=== PATIENT | female | born 1980 | race Caucasian/White ===

== ENCOUNTER → 2016-06-18 | Outpatient (CLI) | payer OTHER ==
[2016-06-18 11:28] LABS: CHCM 32.5; HCT 41.5 % (34.0-46.0); HDW 2.77; HGB 13.1 gm/dL (11.4-16.0); MCH 28.3 pg (25.0-35.0); MCHC 31.6 g/dL (31.0-37.0); MCV 89.5 fL (80.0-100.0); Mean Platelet Volume 6.9; RBC 4.64 m/uL (3.80-5.40); RDW 11.8 % (11.5-15.5); WBC 5.8 k/uL (3.8-10.6)
[2016-06-18 12:11] LABS: Anion Gap 10 mmol/L; Blood Urea Nitrogen 11 mg/dL (7-17); Carbon Dioxide 27 mmol/L (22-30); Chloride 105 mmol/L (98-107); Non-African American GFR(MDRD) >60 (>60 ml/min/1.73 sqM); Potassium 4.2 mmol/L (3.5-5.1); Sodium 142 mmol/L (137-145)
== END | disposition home or self-care (01) ==
LOC: LABWHC1 10:47
PROVIDERS: ATTEND Internal Medicine Cardiovascular Disease
DX: R55 Syncope and collapse (principal)
CPT/HCPCS: 36415; 80051; 82565; 84520; 85027

== ENCOUNTER 2016-06-24 15:37 | Inpatient (IN) | payer OTHER ==
[2016-06-24] MEDS ORDERED: SODIUM CHLORIDE 0.9% 1,000 ML IV SCH (16:30)
[2016-06-24] MEDS: IBUPROFEN 400 MG TAB PO PRN (16:45)
[2016-06-24] MEDS: MIDODRINE 5 MG TAB PO SCH ×2 (16:50→17:22)
[2016-06-24] MEDS: ACETAMINOPHEN TAB 325 MG TAB PO PRN ×2 (17:58→23:43)
[2016-06-24] MEDS: CALCIUM CARBONATE 500 MG CHEWABLE PO PRN (18:00)
[2016-06-24] MEDS: FAMOTIDINE 20 MG TAB PO SCH (19:50)
[2016-06-24] MEDS ORDERED: MAG HYDROX/AL HYDROX/SIMETH 30 ML CUP PO PRN (21:40)
[2016-06-24 23:07] VITALS: RESP 18
[2016-06-25] MEDS: IBUPROFEN 400 MG TAB PO PRN ×2 (03:24→11:42)
[2016-06-25 05:06] VITALS: PULSE 64
[2016-06-25 08:28] VITALS: TEMP 98.2
[2016-06-25] MEDS ORDERED: SODIUM CHLORIDE 0.9% 1,000 ML IV ONE (09:14)
[2016-06-25] MEDS: MIDODRINE 5 MG TAB PO SCH (11:03)
[2016-06-25] MEDS: FAMOTIDINE 20 MG TAB PO SCH (11:03)
[2016-06-25] MEDS ORDERED: FLUDROCORTISONE 0.1 MG TAB PO SCH (11:15)
[2016-06-25 11:31] VITALS: BP 111/69
[2016-06-25] MEDS: CALCIUM CARBONATE 500 MG CHEWABLE PO PRN (11:42)
--- NOTE | 2016-06-25 18:42 | HP ---
DATE OF ADMISSION: 06/24/2016 HISTORY AND PHYSICAL EXAMINATION/DISCHARGE SUMMARY: The patient is a 36-year-old female had multiple syncopal episodes and patient was extensive ( ) and the patient will underwent echocardiogram, which is essentially within normal limits. EKG did not show any significant abnormality. Patient is admitted to [facility] transferred from [facility] to [facility] for tilt table testing. Patient underwent tilt table testing which appears to be positive. The patient had a syncopal episode during the past. Patient may have autonomic dysfunction and the patient although needs to be evaluated for hypocortisolism as an outpatient because of which I referred her to endocrinology for cosyntropin stimulation test. The patient was evaluated by cardiology. They are recommending increased fluticasone. Fluticasone dose was increased. They are not recommending any ( ) at this point of time and patient is being discharged today in stable medical condition. Although patient was advised not to go to work for a couple of weeks and after that patient was advised to be careful and patient works inpatient care and patient was asked to be careful whenever she gets up from sitting down ( ) to standing up position, from lying down to sitting position. REVIEW OF SYSTEMS: CONSTITUTIONAL: No fever, no malaise, no fatigue. HEENT: No recent visual problems or hearing problems. Denied any sore throat. CARDIOVASCULAR: No chest pain, orthopnea, PND, no palpitations, no syncope. PULMONARY: No shortness of breath, no cough, no hemoptysis. GASTROINTESTINAL: No diarrhea, no nausea, no vomiting, no abdominal pain. Normoactive bowel sounds. NEUROLOGICAL: No headaches, no weakness, no numbness. HEMATOLOGICAL: Denies any bleeding or petechiae. GENITOURINARY: Denies any burning micturition, frequency, or urgency. MUSCULOSKELETAL/RHEUMATOLOGICAL: Denies any joint pain, swelling, or any muscle pain. ENDOCRINE: Denies any polyuria or polydipsia. The rest of the 14 point review of systems is negative. PAST MEDICAL HISTORY: Significant for gastroesophageal reflux disease, hypothyroidism. The patient's TSH is essentially within normal limits and the ( ) disease. Patient underwent bariatric surgery in the past, section, cholecystectomy, hernia repair and the patient has motion sickness, anxiety, depression. Family history for cancer, coronary artery disease, diabetes mellitus and hypertension. PHYSICAL EXAMINATION: VITAL SIGNS: Temperature 98.2, pulse of 63, respiratory 16. Blood pressure 111/69, saturating at 99% on room air. GENERAL: The patient is alert and oriented x3, not in any acute distress. Well developed, well nourished. HEENT: Pupils are round and equally reacting to light. EOMI. No scleral icterus. No conjunctival pallor. Normocephalic, atraumatic. No pharyngeal erythema. No thyromegaly. CARDIOVASCULAR: S1 and S2 present. No murmurs, rubs, or gallops. PULMONARY: Chest is clear to auscultation, no wheezing or crackles. ABDOMEN: Soft, nontender, nondistended, normoactive bowel sounds. No palpable organomegaly. MUSCULOSKELETAL: No joint swelling or deformity. EXTREMITIES: No cyanosis, clubbing, or pedal edema. NEUROLOGICAL: Gross neurological examination did not reveal any focal deficits. SKIN: No rashes. Discharge medications include: 1. Famotidine. 2. Calcium carbonate. LABORATORY DATA: None available from here although her laboratory is essentially within normal limits. I did order cosyntropin stimulation test at [facility], the results are still not available at this point of time. ASSESSMENT AND PLAN: 1. Syncopal episode, probably due to autonomic dysfunction versus probably with autonomic dysfunction. Management as mentioned above. 2. Gastroesophageal reflux disease. 3. Depression. The patient will be discharged today to follow up with Dr. Pamela Woodard in [address] Oscar Dos Santos on 07/01 at 3:30 and patient will follow with Dr. Lobo ) in one week. Activity as tolerated. Regular diet. This dictation is both H&P and discharge summary.
--- NOTE | 2016-07-01 08:18 | CE ---
DATE OF SERVICE: TILT TABLE TEST Baseline blood pressure 116/66 mmHg. Baseline heart rate 58 beats a minute. The patient was tilted upright on an angle of 70 degrees per protocol. Within 8 minutes, there was a sudden drop in her blood pressure. Prior to this, she felt clammy, warm, nauseous, and says she was going to throw up. The lowest blood pressure recorded at that time was 78/41 mmHg. When she was laid supine, her blood pressure normalized. IMPRESSION: Neurocardiogenic response to upright tilting.
--- NOTE | 2016-07-01 14:01 | CE ---
DATE OF SERVICE: Please see the tilt table test dictated separately. This is the dictation for the 12-lead ECG. The 12-lead ECG shows sinus mechanism. Heart rate is 55 beats a minute. Normal WI interval, narrow QRS, nonspecific ST-T abnormalities in the inferior leads.
== END 2016-06-25 12:45 | disposition home or self-care (01) | DRG 312 ==
LOC: CATHCVL 15:37 → INTOOBSV 15:38 → OBSVTOIN 15:38 → 6SEL 15:38
PROVIDERS: ADMIT Internal Medicine; ATTEND Internal Medicine
PROC: 4A03XB1 Measurement of Arterial Pressure, Peripheral, External Approach (ICD-10-PCS; 2016-06-25)
PROC: 4A02XFZ Measurement of Cardiac Rhythm, External Approach (ICD-10-PCS; principal; 2016-06-25 09:00)
DX: R55 Syncope and collapse (principal); F32.9 Major depressive disorder, single episode, unspecified; R94.39 Abnormal result of other cardiovascular function study; K21.9 Gastro-esophageal reflux disease without esophagitis; F41.9 Anxiety disorder, unspecified; E03.9 Hypothyroidism, unspecified; Z82.49 Family history of ischemic heart disease and other diseases of the circulatory system; Z83.3 Family history of diabetes mellitus; Z79.899 Other long term (current) drug therapy; Z88.1 Allergy status to other antibiotic agents; Z91.040 Latex allergy status; Z88.0 Allergy status to penicillin; Z91.048 Other nonmedicinal substance allergy status; Z98.84 Bariatric surgery status; Z90.49 Acquired absence of other specified parts of digestive tract; Z80.9 Family history of malignant neoplasm, unspecified
CPT/HCPCS: 93660

== ENCOUNTER → 2016-07-22 | Outpatient (CLI) | payer OTHER ==
--- NOTE | 2016-07-22 12:38 | MR ---
MR brain with and without contrast HISTORY: Dizziness Multiplanar multisequence and postcontrast images through the brain following 20 cc MultiHance IV. Ex am correlated to previous MRI report dated 17 January 2016. There is no restricted diffusion. No hemorrhage or hydrocephalus. 3 hyperintensities are present with in the deep white matter on inversion recovery and T2-weighted sequences which may be an interval fin ding. There are normal appearing orbits. The corpus callosum, cerebellopontine angles, cervical medul darin junction are unremarkable. Partially empty sella is noted. Wispy enhancement in the right fronta l lobe is compatible with small venous angioma. IMPRESSION: Nonspecific foci of white matter demyelination as described, with patient's prior exam be comes available a comparison and an addended report can be performed. No abnormality evident to accou nt for patient's symptoms.
== END ==
LOC: RADMRIMAIN 11:35
PROVIDERS: ATTEND Psychiatry & Neurology Pain Medicine
DX: G37.9 Demyelinating disease of central nervous system, unspecified (principal); R42 Dizziness and giddiness; Z88.0 Allergy status to penicillin; Z88.1 Allergy status to other antibiotic agents; Z91.040 Latex allergy status
CPT/HCPCS: 70553; A9577

== ENCOUNTER → 2016-08-19 | Outpatient (CLI) | payer OTHER ==
--- NOTE | 2016-08-19 12:12 | XR ---
EXAM TYPE: LUMBAR SPINE X RAY SERIES COMPARISON: NONE HISTORY: Low back pain TECHNIQUE: 5 views are submitted. Including flexion-extension lateral views. FINDINGS: Alignment is anatomic. The pedicles are intact. The transverse processes are intact. There is no s pondylolysis or spondylolisthesis. Surgical clips in the right upper quadrant are noted. There is moderate degenerative disc disease involving the lower thoracic spine. Mild degenerative dis c disease at all levels. Alignment appears stable in flexion and extension views. IMPRESSION: 1. Multilevel degenerative disc disease.
== END | disposition home or self-care (01) ==
LOC: RADXRMAIN 10:25
PROVIDERS: ATTEND Psychiatry & Neurology Neurology
DX: M51.36 Other intervertebral disc degeneration, lumbar region (principal)
CPT/HCPCS: 72114

== ENCOUNTER → 2016-09-01 | Outpatient (CLI) | payer OTHER ==
--- NOTE | 2016-09-01 08:37 | MR ---
EXAMINATION TYPE: MR lumbar spine wo con DATE OF EXAM: 09/01/2016 8:17 AM COMPARISON: NONE HISTORY: Lumbago TECHNIQUE: Multiplanar, multisequence images of the lumbar spine were acquired. L1-L2: Normal disc appearance without desiccation. No herniation, protrusion or disc bulging. No ca nal stenosis is present. Foramina are patent bilaterally. L2-L3: There is mild disc desiccation. Mild right paracentral disc bulge without herniation or protru chepe. Minimal effacement ventral thecal sac is noted. No central stenosis identified. Foramina are pa tent. L3-L4: There is mild disc desiccation identified. There is an extruded disc herniation paracentrally and towards the left with disc material extending posterior to the L3 vertebral segment. There is eff acement of the ventral thecal sac and left lateral recess stenosis. No central stenosis at this time. Mild left foraminal encroachment identified. L4-L5: Moderate disc desiccation is identified. Mild posterior central disc herniation effaces the ve ntral thecal sac. No evidence for central stenosis or lateral recess stenosis. Mild bilateral foramin al encroachment is identified. Degenerative endplate marrow changes seen. L5-S1: Normal disc appearance without desiccation. No herniation, protrusion or disc bulging. No ca nal stenosis is present. Foramina are patent bilaterally. Lumbar segments are intact. No paraspinal masses are identified. Conus medullaris has a normal appe arance. IMPRESSION: 1. Extruded disc herniation at L3-4 as discussed above. 2. Mild posterocentral disc herniation at L4-5. See above.
== END | disposition home or self-care (01) ==
LOC: RADMRIMAIN 07:43
PROVIDERS: ATTEND Psychiatry & Neurology Pain Medicine
DX: M51.26 Other intervertebral disc displacement, lumbar region (principal)
CPT/HCPCS: 72148

== ENCOUNTER 2016-09-07 19:08 | Observation (INO) | payer OTHER ==
[2016-09-07] MEDS ORDERED: ASPIRIN 81 MG CHEW PO STA (21:05)
[2016-09-07] MEDS ORDERED: NITROGLYCERIN SL TABS 0.4 MG TAB SUBLINGUAL STA (21:05)
[2016-09-07] MEDS ORDERED: SODIUM CHLORIDE 0.9% 1,000 ML IV STA (21:05)
--- NOTE | 2016-09-07 21:17 | ED ---
General Adult HPI - General Chief complaint: Chest Pain Stated complaint: chest pain Time Seen by Provider: 09/07/16 20:44 Source: patient, family, RN notes reviewed, old records reviewed Mode of arrival: ambulatory Limitations: no limitations - History of Present Illness Initial comments: Chief complaint and history of present illness a 36-year-old female who was at approximately 3 PM today started having chest pain that went down her left arm. Patient reports she just didn't feel well no nausea no vomiting no sweats. The pain is reproducible by pushing hard on her own chest. It goes across the chest into the upper left arm. Initial EKG was done shows a patient arrived emergency room and showed sinus bradycardia but no acute ST elevation no ectopy no ischemic changes. - Related Data Home Medications Medication Instructions Recorded Confirmed Escitalopram [Lexapro] 5 mg PO HS 09/07/16 09/07/16 Famotidine [Pepcid] 40 mg PO HS 09/07/16 09/07/16 Meloxicam [Mobic] 15 mg PO HS 09/07/16 09/07/16 Midodrine [ProAmatine] 5 mg PO BID 09/07/16 09/07/16 Norgestimate-Ethinyl Estradiol 1 tab PO HS 09/07/16 09/07/16 [Sprintec 28 Day Tablet] Omeprazole [PriLOSEC] 20 mg PO DAILY 09/07/16 09/07/16 Allergies Allergy/AdvReac Type Severity Reaction Status Date / Time amoxicillin Allergy Rash/Hives Verified 09/07/16 21:17 erythromycin base Allergy Rash/Hives Verified 09/07/16 21:17 Latex, Natural Rubber Allergy Rash/Hives Verified 09/07/16 21:17 Review of Systems ROS Statement: Those systems with pertinent positive or pertinent negative responses have been documented in the HPI. The patient denies any headache or visual acuity changes she has anterior chest wall pain that goes to the left arm with palpation of her chest wall. The strep started several hours ago no associated sweats nausea or vomiting. No neuro deficits. All systems were reviewed. Past medical problems significant for being diagnosed with MS this last month. Also has GERD, pneumonia, asthma patient has recent and frequent syncopal episodes being treated with medication help her blood pressure get up to a normal range. Her surgeries include bariatric surgery section cholecystectomy hernia repair. She had lap band surgery in 2014. Patient has ALLERGIES to amoxicillin, erythromycin base latex natural rubber. The patient does not smoke does not drink. Family history significant for mother had heart disease and leukemia. Father had renal failure. Brothers and sisters both had heart disease. ROS Other: All systems not noted in ROS Statement are negative. Past Medical History Past Medical History: GERD/Reflux, Pneumonia, Thyroid Disorder Additional Past Medical History / Comment(s): hypothryroidism, polycystic ovarian syndrome.BRONCHITIS, SPARINED ANKLES IN PAST,ARTHRITIS IN ANKLES. AGE 9 BROKE RT ARM,AGE 12 BROKE RT COLLARBONE. HAD CHICKEN POX 8TH GRADE AND GOT BELLS PALSY-STATED HAS HAD BELLS PALSY 4 TIME SINCE AFFECTED RT SIDE OF FACE AT THE TIME."had pne vaccine less than 5 years ago but not sure of date. office closed unable to verify date at time of this admit.MS History of Any Multi-Drug Resistant Organisms: None Reported Past Surgical History: Bariatric Surgery, Section, Cholecystectomy, Hernia Repair Additional Past Surgical History / Comment(s): LAP BAND SINCE REMOVED. Lap sleeve gastrectomy repair hiatal hernia, had to be out to have rt arm reset. mar 2016 had (baby girl). Past Anesthesia/Blood Transfusion Reactions: Motion Sickness Additional Past Anesthesia/Blood Transfusion Reaction / Comment(s): clausterphobia Past Psychological History: Anxiety, Depression Smoking Status: Former smoker Past Alcohol Use History: None Reported Additional Past Alcohol Use History / Comment(s): Pt started smoking in 1993 HERE AND THERE BUT AT AGE 17 [employer]UDENT [employer] 1/2 PPD. QUIT SEPTEMBER 2015 Past Drug Use History: None Reported - Past Family History Mother Family Medical History: Cancer, Coronary Artery Disease (CAD), Diabetes Mellitus , Hypertension Additional Family Medical History / Comment(s): several open herat surguries, tavr procedure, o2 dependant,leukemia-in remission . Father Family Medical History: Blood Disorder, Renal Disease Additional Family Medical History / Comment(s): clotting disorder?, poor circulation, from kidney failure. General Exam - General Exam Comments Initial Comments: General: The patient is awake and alert, in no distress, and does not appear acutely ill. Complains chest pain that started around 3 PM. EKG was normal upon arrival to emergency room. The pain is reproducible with palpation of her own chest by the patient. Vital signs show temperature 97.9 pulse 61 respiratory rate 20 pulse ox 99% room air blood pressure 131/73. Eye: Pupils are equal, round and reactive to light, extra-ocular movements are intact ; there is normal conjunctiva bilaterally. No signs of icterus. Ears, nose, mouth and throat: There are moist mucous membranes and no oral lesions. Neck: The neck is supple, there is no tenderness or JVD. Cardiovascular: There is a regular rate and rhythm. No murmur, rub or gallop is appreciated. Repeat his . Chest wall with palpation over the chest that goes into the left upper arm. Increase with deep breathing or coughing. Respiratory: Lungs are clear to auscultation, respirations are non-labored, breath sounds are equal. No wheezes, stridor, rales, or rhonchi. Gastrointestinal: Soft, non-distended, non-tender abdomen without masses or organomegaly noted. There is no rebound or guarding present. No CVA tenderness. Bowel sounds are unremarkable. Back: There is no tenderness to palpation in the midline. There is no obvious deformity. No rashes noted. Musculoskeletal: Normal ROM, no tenderness, There is no pedal edema. There is no calf tenderness or swelling. Sensation intact. Pulses equal bilaterally 2+. Neurological: CN II-XII intact, There are no obvious motor or sensory deficits. Coordination appears grossly intact. Speech is normal. No neuro deficits appreciated. Skin: Skin is warm and dry and no rashes or lesions are noted. No rashes. Limitations: no limitations Course Vital Signs 09/07/16 09/07/16 09/07/16 19:19 20:21 22:13 Temperature 97.9 F 98.0 F Pulse Rate 61 58 L Respiratory 20 16 16 Rate Blood Pressure 131/73 138/72 O2 Sat by Pulse 99 98 Oximetry 09/07/16 22:34 Temperature Pulse Rate Respiratory Rate Blood Pressure 133/72 O2 Sat by Pulse Oximetry EKG Findings - EKG Comments: EKG Findings:: EKG was done and reviewed at 1923 showing sinus bradycardia rate 54. No acute ST elevation no ectopy no ischemic changes. VA interval is 166 QRS 90 QT [address] Corea Medical Decision Making - Medical Decision Making Medical decision making; patient's white count 6.8 hemoglobin 11.9 hematocrit of 37. INR 1.0 the d-dimer 0.54. Potassium is 4.0 with a BUN 16 creatinine 0.55 the GFR greater than 60. Troponin less than 0.012. Chest x-ray was done and reviewed by radiologist his impression is there is no heart failure nor confluent pneumonic infiltrate. Heart is top normal in size. There are no hilar masses. Bony thorax is intact. Impression borderline cardiomegaly. No acute lung disease. As read by Dr. Willis I discussed the findings with the patient and at bedside. She does have a very strong history of siblings dying of heart attacks in the late 30s and early 40s. Mother had heart disease. The patient will be heparinized and admitted for observation with cardiology consultation and repeat cardiac labs. - Lab Data Result diagrams: 09/07/16 20:45 09/07/16 20:45 Lab Results 09/07/16 09/07/16 09/07/16 Range/Units 20:45 20:45 20:45 WBC 6.8 (3.8-10.6) k/uL RBC 4.25 (3.80-5.40) m/uL Hgb 11.9 (11.4-16.0) gm/dL Hct 37.3 (34.0-46.0) % MCV 87.8 (80.0-100.0) fL MCH 28.0 (25.0-35.0) pg MCHC 31.9 (31.0-37.0) g/dL RDW 13.6 (11.5-15.5) % Plt Count 250 (150-450) k/uL Neutrophils % 58 % Lymphocytes % 32 % Monocytes % 5 % Eosinophils % 3 % Basophils % 1 % Neutrophils # 3.9 (1.3-7.7) k/uL Lymphocytes # 2.1 (1.0-4.8) k/uL Monocytes # 0.3 (0-1.0) k/uL Eosinophils # 0.2 (0-0.7) k/uL Basophils # 0.0 (0-0.2) k/uL PT (9.0-12.0) sec INR (<1.1) APTT (22.0-30.0) sec D-Dimer (<0.60) mg/L FEU Sodium 142 (137-145) mmol/L Potassium 4.0 (3.5-5.1) mmol/L Chloride 110 H (98-107) mmol/L Carbon Dioxide 24 (22-30) mmol/L Anion Gap 8 mmol/L BUN 16 (7-17) mg/dL Creatinine 0.55 (0.52-1.04) mg/dL Est GFR (MDRD) Af Amer >60 (>60 ml/min/1.73 sqM) Est GFR (MDRD) Non-Af >60 (>60 ml/min/1.73 sqM) Glucose 76 (74-99) mg/dL Calcium 8.6 (8.4-10.2) mg/dL Magnesium 2.0 (1.6-2.3) mg/dL Total Bilirubin 0.4 (0.2-1.3) mg/dL AST 19 (14-36) U/L ALT 24 (9-52) U/L Alkaline Phosphatase 51 (38-126) U/L Total Creatine Kinase 124 (30-135) U/L CK-MB (CK-2) 0.5 (0.0-2.4) ng/mL CK-MB (CK-2) Rel Index 0.4 Troponin I <0.012 (0.000-0.034) ng/mL Total Protein 7.1 (6.3-8.2) g/dL Albumin 3.6 (3.5-5.0) g/dL 09/07/16 Range/Units 20:45 WBC (3.8-10.6) k/uL RBC (3.80-5.40) m/uL Hgb (11.4-16.0) gm/dL Hct (34.0-46.0) % MCV (80.0-100.0) fL MCH (25.0-35.0) pg MCHC (31.0-37.0) g/dL RDW (11.5-15.5) % Plt Count (150-450) k/uL Neutrophils % % Lymphocytes % % Monocytes % % Eosinophils % % Basophils % % Neutrophils # (1.3-7.7) k/uL Lymphocytes # (1.0-4.8) k/uL Monocytes # (0-1.0) k/uL Eosinophils # (0-0.7) k/uL Basophils # (0-0.2) k/uL PT 10.0 (9.0-12.0) sec INR 1.0 (<1.1) APTT 19.3 L (22.0-30.0) sec D-Dimer 0.54 (<0.60) mg/L FEU Sodium (137-145) mmol/L Potassium (3.5-5.1) mmol/L Chloride (98-107) mmol/L Carbon Dioxide (22-30) mmol/L Anion Gap mmol/L BUN (7-17) mg/dL Creatinine (0.52-1.04) mg/dL Est GFR (MDRD) Af Amer (>60 ml/min/1.73 sqM) Est GFR (MDRD) Non-Af (>60 ml/min/1.73 sqM) Glucose (74-99) mg/dL Calcium (8.4-10.2) mg/dL Magnesium (1.6-2.3) mg/dL Total Bilirubin (0.2-1.3) mg/dL AST (14-36) U/L ALT (9-52) U/L Alkaline Phosphatase (38-126) U/L Total Creatine Kinase (30-135) U/L CK-MB (CK-2) (0.0-2.4) ng/mL CK-MB (CK-2) Rel Index Troponin I (0.000-0.034) ng/mL Total Protein (6.3-8.2) g/dL Albumin (3.5-5.0) g/dL Disposition Clinical Impression: Cardiomegaly, Unstable angina Disposition: [facility] Condition: Stable
[2016-09-07 22:21] LABS: Basophils % (A) 1 %; CH 27.8; CHCM 31.8; Eosinophils # (A) 0.2 k/uL (0-0.7); Eosinophils % (A) 3 %; HCT 37.3 % (34.0-46.0); HDW 2.58; HGB 11.9 gm/dL (11.4-16.0); Luc # (Auto) 0.17; Luc % (Auto) 3; Lymphocytes # (A) 2.1 k/uL (1.0-4.8); Lymphocytes % (A) 32 %; MCHC 31.9 g/dL (31.0-37.0); MCV 87.8 fL (80.0-100.0); Mean Platelet Volume 7.7; Monocytes # (A) 0.3 k/uL (0-1.0); Monocytes % (A) 5 %; Neutrophils # (A) 3.9 k/uL (1.3-7.7); Neutrophils % (A) 58 %; RBC 4.25 m/uL (3.80-5.40); RDW 13.6 % (11.5-15.5); WBC 6.8 k/uL (3.8-10.6); WBC (Perox) 7.11
[2016-09-07 22:31] LABS: ALT 24 U/L (9-52); AST 19 U/L (14-36); Alkaline Phosphatase 51 U/L (38-126); Anion Gap 8 mmol/L; Blood Urea Nitrogen 16 mg/dL (7-17); Calcium 8.6 mg/dL (8.4-10.2); Carbon Dioxide 24 mmol/L (22-30); Chloride 110 mmol/L (98-107); Glucose 76 mg/dL (74-99); Non-African American GFR(MDRD) >60 (>60 ml/min/1.73 sqM); Sodium 142 mmol/L (137-145); Total Bilirubin 0.4 mg/dL (0.2-1.3); Total Protein 7.1 g/dL (6.3-8.2)
[2016-09-07 22:46] LABS: Partial Thromboplastin Time 19.3 sec (22.0-30.0)
[2016-09-07 22:49] LABS: Creatine Kinase 124 U/L (30-135)
[2016-09-07 23:01] LABS: Creatine Kinase MB 0.5 ng/mL (0.0-2.4); Troponin I <0.012 ng/mL (0.000-0.034)
--- NOTE | 2016-09-07 23:17 | XR ---
EXAMINATION TYPE: XR chest 2V DATE OF EXAM: 09/07/2016 10:51 PM COMPARISON: NONE HISTORY: Chest pain TECHNIQUE: Frontal and lateral views of the chest are obtained. FINDINGS: There is no heart failure nor confluent pneumonic infiltrate. Heart is top normal in size. There are no hilar masses. Bony thorax is intact. IMPRESSION: Borderline cardiomegaly. No acute lung disease.
[2016-09-08] MEDS ORDERED: HEPARIN SODIUM,PORCINE 5,000 UNIT/ML 1 ML VIAL IV ONE (00:23)
[2016-09-08] MEDS ORDERED: NALOXONE 0.4 MG/ML 1 ML VIAL IV PRN (00:25)
[2016-09-08] MEDS ORDERED: IBUPROFEN 400 MG TAB PO PRN (00:25)
[2016-09-08] MEDS ORDERED: HEPARIN SODIUM,PORCINE/D5W PMX 25,000 UNIT in DEXTROSE/WATER 1 500ML.BAG IV SCH (00:30)
[2016-09-08] MEDS ORDERED: SODIUM CHLORIDE 0.9% 1,000 ML IV SCH (00:30)
[2016-09-08] MEDS ORDERED: NITROGLYCERIN SL TABS 0.4 MG TAB SUBLINGUAL PRN (02:06)
[2016-09-08] MEDS: MORPHINE SULFATE 2 MG/ML SYRINGE IVP PRN ×3 (02:12→13:59)
[2016-09-08 08:18] LABS: Creatine Kinase 98 U/L (30-135)
[2016-09-08 08:30] LABS: Creatine Kinase MB 0.4 ng/mL (0.0-2.4); Troponin I <0.012 ng/mL (0.000-0.034)
[2016-09-08] MEDS ORDERED: DOBUTamine DRIP for NUC MED 500 MG in DEXTROSE/WATER 1 250ML.BAG IV ONE (08:46)
--- NOTE | 2016-09-08 08:51 | P.CRDCN ---
History of Present Illness Consult date: 09/08/16 History of present illness: This is a 36-year-old female with history of orthostatic hypotension and recurrent syncopal episodes being followed by Dr. Dos Santos. Apparently she had a workup recently including carotid duplex, echo and event monitor. Patient was put on midodrine and it appears that patient has been feeling better, though she still passes out on occasion. Yesterday patient did not feel well and actually had one syncopal episodes when she was sitting. Apparently she felt dizzy and she sat down before passing out. There was no fall. Subsequent to that patient did not feel well but went to work. Around 3:00 yesterday afternoon patient started having some chest discomfort mostly located on the left side of the chest near the axillary area with some radiation to the left arm. Patient claimed this the first time she had this kind of pain. Because of the pain patient came to the emergency room. EKGs did not reveal any acute changes. Patient was treated with sublingual nitroglycerin with apparent improvement. Patient had pain again last night requiring pain medication. Her cardiac enzymes are negative. Pain does increase on deep breathing. There is no local tenderness. Her chest pains appear to be atypical. Patient is being scheduled for dobutamine echocardiogram. If the stress test is negative, patient could be discharged home. We'll also check her blood pressures for any postural changes. Review of Systems As per the chart Past Medical History Past Medical History: GERD/Reflux, Pneumonia, Thyroid Disorder Additional Past Medical History / Comment(s): hypothryroidism, polycystic ovarian syndrome.BRONCHITIS, SPARINED ANKLES IN PAST,ARTHRITIS IN ANKLES. AGE 9 BROKE RT ARM,AGE 12 BROKE RT COLLARBONE. HAD CHICKEN POX 8TH GRADE AND GOT BELLS PALSY-STATED HAS HAD BELLS PALSY 5 TIME SINCE AFFECTED RT SIDE OF FACE AT THE TIME. MS History of Any Multi-Drug Resistant Organisms: None Reported Past Surgical History: Bariatric Surgery, Section, Cholecystectomy, Hernia Repair Additional Past Surgical History / Comment(s): LAP BAND SINCE REMOVED. Lap sleeve gastrectomy repair hiatal hernia, had to be out to have rt arm reset. mar 2016 had (baby girl). Past Anesthesia/Blood Transfusion Reactions: Motion Sickness Additional Past Anesthesia/Blood Transfusion Reaction / Comment(s): clausterphobia Past Psychological History: Anxiety, Depression Smoking Status: Former smoker Past Alcohol Use History: None Reported Additional Past Alcohol Use History / Comment(s): Pt started smoking in 1993 HERE AND THERE BUT AT AGE 17 [employer] 1/2 PPD. QUIT SEPTEMBER 2015 Past Drug Use History: None Reported - Past Family History Mother Family Medical History: Cancer, Coronary Artery Disease (CAD), Diabetes Mellitus , Hypertension Additional Family Medical History / Comment(s): several open herat surguries, tavr procedure, o2 dependant,leukemia-in remission . Father Family Medical History: Blood Disorder, Renal Disease Additional Family Medical History / Comment(s): clotting disorder?, poor circulation, from kidney failure. Medications and Allergies Home Medications Medication Instructions Recorded Confirmed Type Escitalopram [Lexapro] 5 mg PO HS 09/07/16 09/08/16 History Famotidine [Pepcid] 40 mg PO HS 09/07/16 09/08/16 History Meloxicam [Mobic] 15 mg PO HS 09/07/16 09/08/16 History Midodrine [ProAmatine] 5 mg PO BID 09/07/16 09/08/16 History Norgestimate-Ethinyl Estradiol 1 tab PO HS 09/07/16 09/08/16 History [Sprintec 28 Day Tablet] Omeprazole [PriLOSEC] 20 mg PO DAILY 09/07/16 09/08/16 History Allergies Allergy/AdvReac Type Severity Reaction Status Date / Time amoxicillin Allergy Rash/Hives Verified 09/08/16 01:40 erythromycin base Allergy Rash/Hives Verified 09/08/16 01:40 Latex, Natural Rubber Allergy Rash/Hives Verified 09/08/16 01:40 Physical Exam Vitals: Vital Signs Temp Pulse Pulse Resp BP BP Pulse Ox 09/08/16 07:37 97.6 F 51 L 18 91/54 96 09/08/16 04:00 98.0 F 55 L 16 112/61 100 09/08/16 02:18 16 09/08/16 01:29 98.1 F 54 L 16 125/72 97 09/08/16 00:52 54 L 16 119/71 100 Intake and Output 09/07/16 09/08/16 09/08/16 22:59 06:59 14:59 Other: # Voids 1 GENERAL EXAM: Patient is alert and oriented and doesn't appear to be in any acute distress HEENT: Normocephalic. Normal reaction of pupils, equal size, normal range of extraocular motion. No erythema or exudates in the throat. NECK: No masses, no nuchal rigidity. CHEST: No chest wall deformity. LUNGS: Equal air entry with no crackles or wheeze. HEART: S1 and S2 normal with no audible mumurs or gallops. Regular rhythm, femorals equal on both sides.. ABDOMEN: No hepatosplenomegaly, normal bowel sounds, no guarding or rigidity. SKIN: No rashes CENTRAL NERVOUS SYSTEM: No focal deficits. EXTREMITIES: No cyanosis, clubbing or edema. Results 09/07/16 20:45 09/07/16 20:45 Cardiac Enzymes 09/08/16 Range/Units 06:59 CK-MB (CK-2) 0.4 (0.0-2.4) ng/mL Troponin I <0.012 (0.000-0.034) ng/mL Coagulation 09/08/16 Range/Units 06:59 APTT 30.1 H (22.0-30.0) sec Current Medications Generic Name Dose Route Start Last Admin Trade Name Freq PRN Reason Stop Dose Admin Escitalopram Oxalate 5 mg 09/08/16 21:00 Lexapro PO HS SHARON Famotidine 20 mg 09/08/16 09:00 Pepcid PO BID SHARON Sodium Chloride 1,000 mls @ 75 mls/hr 09/07/16 21:05 09/07/16 22:35 Saline 0.9% IV 09/08/16 10:24 75 mls/hr .[id number] STA Administration Heparin Sodium/Dextrose 25,000 500 mls @ 20.03 mls/hr 09/08/16 00:30 00:48 unit/ IV Solution IV 9.18 units/kg/hr .Q24H SHARON 20 mls/hr Protocol Administration 9.2 UNITS/KG/HR Sodium Chloride 1,000 mls @ 80 mls/hr 09/08/16 00:30 09/08/16 00:51 Saline 0.9% IV 80 mls/hr .[id number] SAHRON Administration Dobutamine HCl/Dextrose 500 mg 250 mls @ 32.65 mls/hr 09/08/16 08:46 / IV Solution IV 09/08/16 08:47 .[id number] ONE Protocol 10 MCG/KG/MIN Ibuprofen 400 mg 09/08/16 00:25 09/08/16 01:47 Motrin PO 400 mg Q6HR PRN Administration Mild Pain or Fever > 100.5 Midodrine 5 mg 09/08/16 09:00 Proamatine PO BID SHARON Morphine Sulfate 2 mg 09/08/16 02:05 09/08/16 05:40 Morphine Sulfate (Inj) IVP 2 mg Q4H PRN Administration Pain/Discomfort Naloxone HCl 0.2 mg 09/08/16 00:25 Narcan IV Q2M PRN Opioid Reversal Nitroglycerin 0.4 mg 09/08/16 02:06 Nitrostat SUBLINGUAL Q5M PRN Chest Pain Intake and Output 09/07/16 09/08/16 09/08/16 22:59 06:59 14:59 Other: # Voids 1 EKG Interpretations (text) Sinus rhythm and sinus bradycardia Assessment and Plan (1) Chest pain Status: Acute (2) Orthostatic hypotension Status: Acute (3) Syncope Status: Acute (4) Syncopal episodes Status: Acute Plan: Patient chest pain appeared to be typical. Her cardiac enzymes are negative and EKGs did not reveal any acute changes. Patient is being scheduled for a dobutamine echocardiogram. If the echocardiogram is negative for ischemia, patient could be discharged home. We'll also check her blood pressure postural changes. Patient is encouraged to increase her salt and fluid intake
[2016-09-08] MEDS ORDERED: MIDODRINE 5 MG TAB PO SCH (09:00)
[2016-09-08] MEDS ORDERED: FAMOTIDINE 20 MG TAB PO SCH (09:00)
[2016-09-08] MEDS ORDERED: METOPROLOL TARTRATE 5 MG/5 ML VIAL IVP ONE (10:26)
[2016-09-08] MEDS ORDERED: ATROPINE SULFATE 0.1 MG/ML 10ML SYRINGE ONE (10:26)
[2016-09-08 11:46] VITALS: BP 115/65; PULSE 65; RESP 16; TEMP 97.8
--- NOTE | 2016-09-08 12:17 | ECHOS ---
DATE OF SERVICE: 09/08/2016 AGE: 36Y SEX: F HT: 67" WT: 240 lbs. Protocol Colby: Others: Dobutamine Stress Echo Stage: 4 Dur. of Exercise: 11:00 *Heart Rate Blood Pressure *Rest: 50 Rest: 112/77 * *Max. Achieved: 157 Maximum BP: 153/75 85% PMHR: 156 100% PMHR: 184 *METS: - INDICATIONS: Chest pain. MEDICATIONS: - CLINICAL INFORMATION: Shortness of breath, chest pain in family history, history of smoking 1/2 pack of cigarettes a day, quit smoking 10 years ago. Resting ECG shows sinus bradycardia, rate of 50 beats per minute, CO interval of 0.16, QRS of 0.08, normal ST-T waves. Utilizing 800 Dobutamine protocol, ( ) was increased up to 40 mcg without reaching the target heart rate. At that point, patient has received 0.5 mg of atropine IV push which increased the heart rate to 157 beats per minute, which is approximately 85% predicted maximum heart rate without any chest pain or pressure or ST segment deviations or cardiac arrhythmias. Patient did not report any symptoms throughout the study. Baseline images shows normal thickening and contractibility. Postexercise images shows improved contractility and thickening in all segments, consistent with normal dobutamine stress echocardiogram. IMPRESSION: 1. Normal dobutamine stress echocardiogram. 2. Patient did not have any ST segment deviations or cardiac arrhythmias throughout the study.
[2016-09-08 14:50] LABS: Creatine Kinase MB 0.5 ng/mL (0.0-2.4); Troponin I 0.015 ng/mL (0.000-0.034)
--- NOTE | 2016-09-08 20:12 | HP ---
DATE OF ADMISSION: 09/08/2016 PRESENTING COMPLAINT: Not feeling well. History of presenting complaint: This 36-year-old patient who follows with Dr. Bladimir Dos Santos from cardiology has a diagnosis of orthostatic hypotension and recurrent episode of nearly passing out or passing out. Patient has had work-up including echocardiogram, carotid duplex, event monitor. The patient has been on Midodrine that has helped a little bit. Patient presented with an episode of feeling dizzy and actually sat down and passed out. Patient also had some discomfort in the left side of the chest pain going into the axilla area to the left arm. This had not happened prior. This was short lived. No dizziness. No perspiration. Hence she is brought in. The patient's chronic stable medical conditions otherwise include GERD, hypothyroid, polycystic ovarian syndrome. REVIEW OF SYSTEMS: CONSTITUTIONAL: Tired. HEENT: None. RESPIRATORY: None. CARDIOVASCULAR: None. GASTROINTESTINAL: Heartburn. GENITOURINARY: None. MUSCULOSKELETAL: Some pain in the joints. Dermatological: None. HEMATOLOGIC: None. LYMPHATICS: None. PSYCHIATRY: Some anxiety, depression. NEUROLOGICAL: No focal symptoms. 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 Segal. PAST SURGICAL HISTORY: Bariatric surgery , cholecystectomy, hernia repair, lap band was removed on 09/20/2015, lap sleeve gastrectomy repair, hiatal hernia, . Psych history: Anxiety, depression, claustrophobia. SOCIAL HISTORY: Patient stopped smoking last year, smoked for about 18 years. Family history of coronary artery disease, diabetes, hypertension, leukemia. HOME MEDICATIONS: 1. Prilosec 20 mg a day. 2. ( ) 28, 1 tablet q.h.s. 3. Midodrine 5 mg p.o. b.i.d. 4. Mobic 50 mg p.o. q.h.s. 5. Pepcid 40 mg q.h.s. 6. Lexapro 5 mg p.o. q.h.s. ALLERGIES TO AMOXILLIN, ERYTHROMYCIN AND LATEX. On examination, temperature 97.9, pulse 61, respiration 20, blood pressure 139/73, pulse ox 99% on room air. GENERAL APPEARANCE: Well built, BMI of 36, ( ) lying in bed, not in distress. EYES: Pupils equal. Conjunctivae normal. HEENT: External appearance of nose and ears normal. Oral cavity normal. NECK: JVD not raised. Mass not palpable. RESPIRATORY: Effort normal. Lungs are clear. CARDIOVASCULAR: First and second sounds normal. No edema. ABDOMEN: Soft, nontender. Liver and spleen not palpable. LYMPHATIC: No lymph nodes palpable in neck or axillae. PSYCHIATRY: Alert and oriented x3. Mood and affect normal. NEUROLOGICAL: Pupils equal. Cranial nerves grossly intact. Power and sensation grossly intact. INVESTIGATIONS: White count 6.8, hemoglobin 11.9, potassium 4.0. Troponin x3 negative. ASSESSMENT: 1. Left side atypical chest pain. 2. Chronic orthostatic hypotension with patient on Midodrine being ( ) by Dr. Bladimir Dos Santos as an outpatient. 3. Obesity, body mass index of 37.6. 4. Gastroesophageal reflux disease. 5. Depression and anxiety not otherwise specified. PLAN: Patient is put on IV heparin. Cardiology was consulted, who ordered a stress test.
[2016-09-08] MEDS ORDERED: ESCITALOPRAM 5 MG TAB PO SCH (21:00)
[2016-09-08] MEDS ORDERED: NON-FORMULARY DRUG (Meloxicam [Mobic] 15 MG) PO SCH (21:00)
--- NOTE | 2016-09-09 22:31 | DS ---
DATE OF ADMISSION: 09/08/2016 DATE OF DISCHARGE: 09/08/2016 FINAL DIAGNOSES: 1. Left-sided atypical chest pain; could be musculoskeletal. 2. Chronic orthostatic hypotension, on Midodrine. 3. Obesity; body mass index of 37.6. 4. Gastroesophageal reflux disease. 5. Depression and anxiety not otherwise specified. HOSPITAL COURSE: This patient presented with atypical chest pain. Patient underwent a dobutamine echocardiogram that was negative. Patient is to follow up with Dr. Bladimir Dos Santos. She was seen and Cardiology and okayed to be discharged. On examination, some reproducible pain on the left upper chest wall. CONSULTATION: Dr. Salazar from Cardiology. DISCHARGE MEDICATIONS: 1. Lexapro 5 mg p.o. at bedtime. 2. Pepcid 40 mg p.o. at bedtime. 3. Mobic 50 mg p.o. at bedtime. 4. ProAmatine 5 mg p.o. b.i.d. 5. Sprintec 1 tablet p.o. at bedtime. 6. Prilosec 20 mg daily. Follow up with Dr. Bonny Meehan in 3 days. Follow up with Dr. Bladimir Dos Santos on 09/15/16.
== END 2016-09-08 17:51 | disposition home or self-care (01) ==
LOC: EC 19:08 → 3OBS 09-08 00:42
PROVIDERS: ADMIT Hospitalist; ATTEND Hospitalist
DX: R07.89 Other chest pain (principal); I95.1 Orthostatic hypotension; E66.9 Obesity, unspecified; Z68.37 Body mass index [BMI] 37.0-37.9, adult; F32.9 Major depressive disorder, single episode, unspecified; K21.9 Gastro-esophageal reflux disease without esophagitis; E03.9 Hypothyroidism, unspecified; F40.240 Claustrophobia; Z79.899 Other long term (current) drug therapy; Z82.49 Family history of ischemic heart disease and other diseases of the circulatory system; Z87.891 Personal history of nicotine dependence; Z91.040 Latex allergy status; R00.1 Bradycardia, unspecified; Z88.1 Allergy status to other antibiotic agents; Z88.0 Allergy status to penicillin; M19.072 Primary osteoarthritis, left ankle and foot; M19.071 Primary osteoarthritis, right ankle and foot; Z90.3 Acquired absence of stomach [part of]; K44.9 Diaphragmatic hernia without obstruction or gangrene; F41.9 Anxiety disorder, unspecified; R55 Syncope and collapse; E28.2 Polycystic ovarian syndrome
CPT/HCPCS: 96374 ×2; 96361 ×5; 99285 ×2; 36415; 93005; 93017; 93350; 85379; 80053; 82550 ×2; 82553 ×2; 83735; 84484 ×2; 85025; 85610; 85730 ×2; 71020; G0378; J1250; J1644 ×2; J0461; J2270

== ENCOUNTER → 2016-10-08 | Outpatient (CLI) | payer OTHER ==
--- NOTE | 2016-10-10 22:26 | MR ---
EXAMINATION TYPE: MR shoulder LT wo con DATE OF EXAM: 10/08/2016 12:30 PM COMPARISON: NONE HISTORY: 36-year-old female with left shoulder pain TECHNIQUE: Multiplanar, multisequence imaging of the left shoulder is performed without contrast. FINDINGS: The long head biceps tendon is intact and remains appropriately situated along the bicipital groove. There is a 1.7 x 0.7 x 2.4 cm multilocular cyst overlying the long head biceps tendon along the bicip ital groove. Subscapularis tendon is intact. The acromioclavicular joint is intact. There is thickening and heterogeneity of both the supraspinatus and infraspinatus tendon, more marked along the mid to posterior supraspinatus tendon fibers where there may be a 1.1 x 1.1 cm intrasubsta nce tear. Some fluid is seen tracking along the infraspinatus myotendinous junction from this area. T here is no full-thickness or retracted tear. No clear communication with either articular or bursal s urface. In addition, along the posterior infraspinatus tendon, there is a 1.0 cm cyst along the bursal surfac e with some attenuation of the bursal sided fibers. Mild thickening of the overlying subacromial/subdeltoid bursa without chilo fluid distention. No atrophy of the rotator cuff musculature. The glenohumeral joint is intact. No significant joint effusion. No discrete labral tear given nonart hrographic technique. No Hill-Sachs deformity or os acromiale. No suspicious bone marrow replacement. IMPRESSION: 1. Moderate to severe tendinosis of the mid to posterior supraspinatus tendon. There may be an underl meka 1.1 x 1.1 cm intrasubstance tear. No clear articular or bursal sided communication. 2. A 1 cm cyst over the bursal surface of the posterior infraspinatus tendon. Suspect shallow bursal sided tearing here. 3. A multilocular 2.4 x 1.7 cm ganglion cyst anteriorly overlying the long head biceps tendon and bic ipital groove.
--- NOTE | 2016-10-12 | MR ---
EXAMINATION TYPE: MR brachial plexus LT wo/w con DATE OF EXAM: 10/08/2016 12:32 PM COMPARISON: NONE HISTORY: brachial plexus disorder, left CONTRAST: Standard multiplanar, multisequence MRI departmental protocol utilizing 20 mL intravenous MultiHance gadolinium contrast. FINDINGS: There is evidence of minimal shoulder joint effusion. There are numerous anterior triangle cervical lymph nodes on the left side that measure up to 1.5 cm. Cervical spinal cord has normal sign al pattern. Cervical vertebra have normal alignment. There is no paraspinal mass. I see no discrete b rachial plexus mass. I see no pathologic enhancement. There is no sign of cervical spinal stenosis. B rainstem appears intact. There is mediastinal fat tissue consistent with lipomatosis. IMPRESSION: No discrete brachial plexus abnormality. Small left shoulder joint effusion. Mild nonspecific cervical adenopathy.
== END | disposition home or self-care (01) ==
LOC: RADMRIMAIN 11:05
PROVIDERS: ATTEND Psychiatry & Neurology Pain Medicine
DX: M75.82 Other shoulder lesions, left shoulder (principal); R59.0 Localized enlarged lymph nodes; M71.312 Other bursal cyst, left shoulder; M67.412 Ganglion, left shoulder
CPT/HCPCS: 71552; 73221; A9577

== ENCOUNTER → 2017-02-08 | Outpatient (CLI) | payer OTHER ==
[2017-02-08 14:32] LABS: Blood Urea Nitrogen 16 mg/dL (7-17); Non-African American GFR(MDRD) >60 (>60 ml/min/1.73 sqM)
--- NOTE | 2017-02-08 15:21 | MR ---
EXAMINATION TYPE: MR brain wo/w con DATE OF EXAM: 02/08/2017 COMPARISON: MRI brain July 22, 2016 HISTORY: Syncope, checkout lesions per patient TECHNIQUE: Multiplanar, multisequence images of the brain and brainstem is performed without and with IV contras t, utilizing 11.5 ml mL intravenous Gadavist . FINDINGS: Diffusion weighted images demonstrate no evidence of a recent infarct or other diffusion ab normality. There is no worrisome extra-axial fluid collection. The ventricular system and cisternal spaces are normal in size and appearance. The brain volume is age appropriate. There is redemonstra tion of 2-4 small scattered white matter lesions, for reference and 3 mm right periventricular lesion on axial image 20. Some more artifact is felt present on current study as there are not distinct les ions persisting in both T2 and FLAIR images. Overall lesions are likely stable. Midline structures demonstrate somewhat empty sella similar to prior. The craniocervical junction ap pears within normal limits. Post contrast images demonstrate no abnormal enhancement. The dural veno us sinuses appear patent. The visualized sinuses are clear and the globes are intact. IMPRESSION: Empty sella and minimal white matter changes redemonstrated. No significant change from p rior.
== END | disposition home or self-care (01) ==
LOC: RADMRIMAIN 13:47
PROVIDERS: ATTEND Psychiatry & Neurology Pain Medicine
DX: R90.82 White matter disease, unspecified (principal); E23.6 Other disorders of pituitary gland; R55 Syncope and collapse
CPT/HCPCS: 82565; 84520; 70553; A9581

== ENCOUNTER → 2017-02-25 | Outpatient (CLI) | payer OTHER ==
[2017-02-25 20:54] LABS: ANA w/Reflex to Titer NEGATIVE (NEGATIVE); Cyclic Citrull Pep IgG Unit <0.5 U/mL; Cyclic Citrullinated Pep IgG NEGATIVE (NEGATIVE); RNP AB Interpretation NEGATIVE (NEGATIVE); Scleroderma SC-70 Ab Interp NEGATIVE (NEGATIVE)
[2017-03-10 07:38] LABS: Mis test requested (Blood) Anti-PM/Scl-100
== END | disposition home or self-care (01) ==
LOC: LABWHC1 12:43
PROVIDERS: ATTEND Psychiatry & Neurology Pain Medicine
DX: M25.50 Pain in unspecified joint (principal)
CPT/HCPCS: 36415; 83516; 86038; 86200; 86225; 86235

== ENCOUNTER → 2017-09-05 | Outpatient (CLI) | payer OTHER ==
[2017-09-05 15:47] VITALS: BP 134/64; PULSE 76; RESP 16; TEMP 98.5; BMI 45.9
--- NOTE | 2017-09-05 16:32 | P.HPBAR ---
Bariatric H&P - History & Physicial H&P Date: 09/05/17 History & Physicial: Visit/CC: sleeve follow-up Patient initial contact: Initial weight: 449 kg Initial weight in pounds: 989.88 Height: 5 ft 7 in Initial BMI: 155.0 Last weight: Current weight: 132.988 kg Current weight in pounds: 293.19 Current BMI: 45.9 Granite body weight (based on NIH guidelines): 61.235 kg Excess body weight loss: 81.4% The patient is a 37 year-old F who presents for Bariatric Assessment. Patient resents today for sleeve gastrectomy follow-up. She's had complaints of GERD and weight gain. The patches gained approximately 60 pounds over the last 1 year. She's not been seen in several years. Past Medical History Past Medical History: GERD/Reflux, Pneumonia, Thyroid Disorder Additional Past Medical History / Comment(s): hypothryroidism, polycystic ovarian syndrome.BRONCHITIS, SPARINED ANKLES IN PAST,ARTHRITIS IN ANKLES. AGE 9 BROKE RT ARM,AGE 12 BROKE RT COLLARBONE. HAD CHICKEN POX 8TH GRADE AND GOT BELLS PALSY-STATED HAS HAD BELLS PALSY 5 TIME SINCE AFFECTED RT SIDE OF FACE AT THE TIME. MS History of Any Multi-Drug Resistant Organisms: None Reported Past Surgical History: Bariatric Surgery, Section, Cholecystectomy, Hernia Repair Additional Past Surgical History / Comment(s): LAP BAND SINCE REMOVED. Lap sleeve gastrectomy repair hiatal hernia, had to be out to have rt arm reset. mar 2016 had (baby girl). 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 Father Family Medical History: Blood Disorder, Renal Disease Additional Family Medical History / Comment(s): clotting disorder?, poor circulation, from kidney failure. Surgical - Exam Vital Signs Temp Pulse Resp BP 98.5 F 76 16 134/64 09/05/17 15:43 09/05/17 15:43 09/05/17 15:43 09/05/17 15:43 - General well developed, no distress - Eyes PERRL - ENT normal pinna - Neck no masses - Respiratory normal expansion - Cardiovascular Rhythm: regular - Abdomen Abdomen: soft, non tender Bariatric Assessment & Plan Plan: Status post sleeve gastrectomy. Patient has GERD symptoms. Patient will be scheduled for EGD and esophagram. She was scheduled see the dietitian. Bariatric Checklist Checklist: Plan: Checklist: EGD: 1. Hiatal hernia: 2. H. Pylori: HgbA1c: Vitamin D: Smoking: Former smoker Primary care physician referral: Psychiatry clearance: Cardiology clearance: Sleep study: Diet journal: VTE risk score: VTE risk level: Rehab needs at discharge:
== END ==
LOC: BARWHC3 14:51
PROVIDERS: ATTEND Surgery
DX: Z48.815 Encounter for surgical aftercare following surgery on the digestive system (principal); K21.9 Gastro-esophageal reflux disease without esophagitis; Z98.84 Bariatric surgery status; Z87.891 Personal history of nicotine dependence
CPT/HCPCS: 99211

== ENCOUNTER → 2017-09-21 | Outpatient (CLI) | payer OTHER ==
--- NOTE | 2017-09-21 13:01 | FL ---
EXAMINATION: Cervical and Thoracic Esophagram DATE OF EXAM: 09/21/2017 CLINICAL INDICATION: 37-year-old female with GERD and complaint of food getting stuck when swallowing . History of lap band removal 3 years ago with gastric sleeve. COMPARISON: 09/20/2014 Total Flouroscopy Time: 1 minute 47 seconds Total images: 40 FINDINGS: The swallowing mechanism is normal and hypopharyngeal anatomy is preserved. The cervical and thoracic portions have a normal course and caliber and normal motility. Minimal tert iary peristaltic contractions are noted. There is a very small sliding hiatal hernia and severe reflux to the level of the thoracic inlet. The sleeve appears grossly intact and is noted to be restrictive after only 2 swallows of contrast th at causes pooling in the distal esophagus. IMPRESSION: 1. Status post sleeve gastrectomy. The sleeve appears appropriately restrictive with some pooling of contrast in the distal esophagus after only 2 swallows. No stricture. 2. Small sliding hiatal hernia with severe gastroesophageal reflux to the level of the thoracic inlet .
== END | disposition home or self-care (01) ==
LOC: RADFLMAIN 09:09
PROVIDERS: ATTEND Surgery
DX: K21.9 Gastro-esophageal reflux disease without esophagitis (principal); K44.9 Diaphragmatic hernia without obstruction or gangrene; Z98.84 Bariatric surgery status
CPT/HCPCS: 74220

== ENCOUNTER 2017-09-22 09:26 | Day surgery (SDC) | payer OTHER ==
[2017-09-19 15:53] VITALS: BMI 45.4
[~2017-09-22 09:26] MED LIST: LACTATED RINGERS 1,000 ML IV SCH
[2017-09-22 09:49] VITALS: TEMP 97.9
[2017-09-22] MEDS ORDERED: LIDOCAINE 1% 20 ML VIAL (10MG/ML) FOR IV START INTRADERMA ONE (09:53)
[2017-09-22] MEDS ORDERED: LIDOCAINE 1% INJ 10MG/ML (20 ML MDV) ONE (10:40)
[2017-09-22] MEDS ORDERED: PROPOFOL 10 MG/ML 20 ML VIAL IV ONE (10:40)
[2017-09-22] MEDS ORDERED: GLYCOPYRROLATE 0.2 MG/ML 2 ML VIAL ONE (10:40)
--- NOTE | 2017-09-22 10:53 | P.GSHP ---
History of Present Illness H&P Date: 09/22/17 Chief Complaint: GERD This is a 37-year-old female who presents today for EGD. She's had issues with GERD. Her recent esophagram shows evidence of a sliding hiatal hernia. Past Medical History Past Medical History: GERD/Reflux, Musculoskeletal Disorder, Pneumonia, Thyroid Disorder Additional Past Medical History / Comment(s): hypothryroidism, PCOS.BRONCHITIS, SPRAINED ANKLES IN PAST,ARTHRITIS IN ANKLES. AGE 9 BROKE RT ARM,AGE 12 BROKE RT COLLARBONE. HAD CHICKEN POX 8TH GRADE AND GOT BELLS PALSY-STATED HAS HAD BELLS PALSY 5 TIME SINCE AFFECTED RT SIDE OF FACE AT THE TIME. MS, POTS History of Any Multi-Drug Resistant Organisms: None Reported Past Surgical History: Bariatric Surgery, Section, Cholecystectomy, Hernia Repair Additional Past Surgical History / Comment(s): LAP BAND SINCE REMOVED. Lap sleeve gastrectomy repair hiatal hernia, had to be out to have rt arm reset Past Anesthesia/Blood Transfusion Reactions: Motion Sickness Additional Past Anesthesia/Blood Transfusion Reaction / Comment(s): CLAUSTROPHOBIA Smoking Status: Former smoker - Past Family History Mother Family Medical History: Cancer, Coronary Artery Disease (CAD), Diabetes Mellitus , Hypertension Additional Family Medical History / Comment(s): several open hEART surguries, Father Family Medical History: Blood Disorder, Renal Disease Additional Family Medical History / Comment(s): clotting disorder?, poor circulation, from kidney failure. Medications and Allergies Home Medications Medication Instructions Recorded Confirmed Type Famotidine [Pepcid] 40 mg PO HS 09/07/16 09/22/17 History Midodrine [ProAmatine] 5 mg PO BID 09/07/16 09/22/17 History Omeprazole [PriLOSEC] 20 mg PO DAILY 09/07/16 09/22/17 History Levothyroxine Sodium [Tirosint] 25 mcg PO DAILY 09/06/17 09/22/17 History Loratadine [Claritin] 10 mg PO DAILY 09/06/17 09/22/17 History traZODone HCL [TraZODone HCl] 50 mg PO DAILY 09/06/17 09/22/17 History Lexapro-Unk Dose 1 each PO DAILY 09/19/17 09/22/17 History metFORMIN HCL [Glucophage] 500 mg PO BID 09/19/17 09/22/17 History traMADol HCL [Ultram] 100 mg PO QID PRN 09/19/17 09/22/17 History Allergies Allergy/AdvReac Type Severity Reaction Status Date / Time amoxicillin Allergy Rash/Hives Verified 09/19/17 15:45 erythromycin base Allergy Rash/Hives Verified 09/19/17 15:45 Latex, Natural Rubber Allergy Rash/Hives Verified 09/19/17 15:45 Surgical - Exam Vital Signs Temp Pulse Resp BP Pulse Ox 97.9 F 52 L 16 125/79 94 L 09/22/17 09:47 09/22/17 09:47 09/22/17 09:47 09/22/17 09:47 09/22/17 09:47 - General well developed, no distress - Eyes PERRL - ENT normal pinna - Neck no masses - Respiratory normal expansion - Cardiovascular Rhythm: regular - Abdomen Abdomen: soft, non tender Assessment and Plan Assessment: GERD. We'll perform EGD.
--- NOTE | 2017-09-22 11:08 | P.OP ---
Date of Procedure: 09/22/17 Preoperative Diagnosis: GERD Postoperative Diagnosis: Antral gastritis Gastric sleeve without obstruction No significant hernia Mild esophagitis Procedure(s) Performed: EGD Anesthesia: MAC Surgeon: Carrington Rodrigues Pathology: other (Antrum, esophagus) Condition: stable Disposition: PACU Description of Procedure: The patient's placed on the endoscopy table in the lateral position. She received IV sedation. The gastroscope some placed oropharynx and passed in the esophagus and into the stomach. Scope was then placed through the pylorus. The first and second portion of the duodenum appeared normal. The scope was then brought back the antrum this. Mildly inflamed. A biopsies performed. The scope was then brought back through the gastric sleeve. There is no obstruction. Scope was then brought back and the cardia of stomach The scope was retroflexed and remainder stomach appeared normal. No significant hiatal hernia was seen. The distal esophagus appeared mildly inflamed. The GE junction was at 40 cm. The proximal esophagus appeared normal. Scope was withdrawn for patient.
[2017-09-22 11:11] VITALS: RESP 18
[2017-09-22 12:05] VITALS: BP 125/83; PULSE 61
== END 2017-09-22 12:29 | disposition home or self-care (01) ==
LOC: ORWHC2ENDO 09:26
PROVIDERS: ATTEND Surgery
DX: K29.50 Unspecified chronic gastritis without bleeding (principal); K21.0 Gastro-esophageal reflux disease with esophagitis; Z90.3 Acquired absence of stomach [part of]; Z98.84 Bariatric surgery status; E03.9 Hypothyroidism, unspecified; E11.9 Type 2 diabetes mellitus without complications; R00.0 Tachycardia, unspecified; F39 Unspecified mood [affective] disorder; G51.0 Bell's palsy; F40.240 Claustrophobia; Z79.84 Long term (current) use of oral hypoglycemic drugs; Z79.899 Other long term (current) drug therapy; Z88.0 Allergy status to penicillin; Z88.1 Allergy status to other antibiotic agents; Z91.040 Latex allergy status; Z87.891 Personal history of nicotine dependence
CPT/HCPCS: 81025; 88305; 43239; J2001; J2704

== ENCOUNTER → 2017-10-10 | Outpatient (CLI) | payer OTHER ==
[2017-10-10 15:08] VITALS: BP 100/56; PULSE 71; TEMP 98.7; BMI 46.5
--- NOTE | 2017-10-10 15:23 | P.HPBAR ---
Bariatric H&P - History & Physicial H&P Date: 10/10/17 History & Physicial: Visit/CC: egd follow up Patient initial contact: Initial weight: 449 kg Initial weight in pounds: 989.88 Height: 5 ft 7 in Initial BMI: 155.0 Last weight: Current weight: 134.626 kg Current weight in pounds: 296.80 Current BMI: 46.5 Martin body weight (based on NIH guidelines): 61.235 kg Excess body weight loss: 81.0% The patient is a 37 year-old F who presents for Bariatric Assessment. Patient has had complaints of GERD. Her GERD has improved. She is currently taking Prilosec twice a day. Past Medical History Past Medical History: GERD/Reflux, Pneumonia, Thyroid Disorder Additional Past Medical History / Comment(s): hypothryroidism, polycystic ovarian syndrome.BRONCHITIS, SPARINED ANKLES IN PAST,ARTHRITIS IN ANKLES. AGE 9 BROKE RT ARM,AGE 12 BROKE RT COLLARBONE. HAD CHICKEN POX 8TH GRADE AND GOT BELLS PALSY-STATED HAS HAD BELLS PALSY 5 TIME SINCE AFFECTED RT SIDE OF FACE AT THE TIME. MS History of Any Multi-Drug Resistant Organisms: None Reported Past Surgical History: Bariatric Surgery, Section, Cholecystectomy, Hernia Repair Additional Past Surgical History / Comment(s): LAP BAND SINCE REMOVED. Lap sleeve gastrectomy repair hiatal hernia, had to be out to have rt arm reset. mar 2016 had (baby girl). 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 QUIT SEPTEMBER 2015 Past Drug Use History: None Reported - Past Family History Mother Family Medical History: Cancer, Coronary Artery Disease (CAD), Diabetes Mellitus , Hypertension Additional Family Medical History / Comment(s): several open hEART surguries, Father Family Medical History: Blood Disorder, Renal Disease Additional Family Medical History / Comment(s): clotting disorder?, poor circulation, from kidney failure. Surgical - Exam Vital Signs Temp Pulse BP 98.7 F 71 100/56 10/10/17 15:05 10/10/17 15:05 10/10/17 15:05 - General well developed, well nourished, no distress - Eyes PERRL - Abdomen Abdomen: soft, non tender Bariatric Assessment & Plan Plan: Status post sleeve gastrectomy. Patient is still morbidly obese with BMI of 47. The patient has no significant obstruction or sleep. She will be with the dietitian today. Patient's girdle be managed with omeprazole. She'll follow-up in 4 weeks. Bariatric Checklist Checklist: Plan: Checklist: EGD: 1. Hiatal hernia: 2. H. Pylori: HgbA1c: Vitamin D: Smoking: Former smoker Primary care physician referral: Psychiatry clearance: Cardiology clearance: Sleep study: Diet journal: VTE risk score: VTE risk level: Rehab needs at discharge:
== END | disposition home or self-care (01) ==
LOC: BARWHC3 14:46
PROVIDERS: ATTEND Surgery
DX: K21.9 Gastro-esophageal reflux disease without esophagitis (principal); E66.01 Morbid (severe) obesity due to excess calories; E03.9 Hypothyroidism, unspecified; E28.2 Polycystic ovarian syndrome; M19.072 Primary osteoarthritis, left ankle and foot; M19.071 Primary osteoarthritis, right ankle and foot; F32.9 Major depressive disorder, single episode, unspecified; F41.9 Anxiety disorder, unspecified; Z98.890 Other specified postprocedural states; Z98.84 Bariatric surgery status; Z68.42 Body mass index [BMI] 45.0-49.9, adult; Z79.899 Other long term (current) drug therapy; Z87.891 Personal history of nicotine dependence
CPT/HCPCS: 99211

== ENCOUNTER → 2018-01-19 | Outpatient (CLI) | payer OTHER ==
[2018-01-19 16:59] LABS: HCT 36.6 % (34.0-46.0); HGB 11.3 gm/dL (11.4-16.0); Hypochromasia Moderate; MCH 25.7 pg (25.0-35.0); MCHC 30.9 g/dL (31.0-37.0); MCV 83.2 fL (80.0-100.0); Mean Platelet Volume 7.2; Platelet Count 312 k/uL (150-450); RDW 14.1 % (11.5-15.5); WBC 8.5 k/uL (3.8-10.6)
[2018-01-19 17:06] LABS: Anion Gap 7 mmol/L; Blood Urea Nitrogen 9 mg/dL (7-17); Carbon Dioxide 25 mmol/L (22-30); Chloride 109 mmol/L (98-107); Glucose 79 mg/dL (74-99); Potassium 4.2 mmol/L (3.5-5.1); Sodium 141 mmol/L (137-145)
== END | disposition home or self-care (01) ==
LOC: LABPAT 16:00
PROVIDERS: ATTEND Internal Medicine Clinical Cardiac Electrophysiology
DX: Z01.812 Encounter for preprocedural laboratory examination (principal); I95.89 Other hypotension; R00.2 Palpitations; R55 Syncope and collapse
CPT/HCPCS: 36415; 80051; 82565; 82947; 84520; 85027

== ENCOUNTER 2018-02-02 10:28 | Day surgery (SDC) | payer OTHER ==
[2018-01-27 15:21] VITALS: BMI 46.0
[~2018-02-02 10:28] MED LIST changes: +SODIUM CHLORIDE 0.9% 1,000 ML IV SCH
[2018-02-02 12:07] LABS: Glucose,Whole Blood 81 mg/dL (75-99)
[2018-02-02] MEDS ORDERED: diphenhydrAMINE 50 MG/ML 1 ML VIAL ONE (13:14)
[2018-02-02] MEDS ORDERED: ISOPROTERENOL 250 MCG/1.25 ML SYR IV ONE (13:14)
[2018-02-02] MEDS ORDERED: MIDAZOLAM 2 MG/2 ML VIAL ONE (13:14)
[2018-02-02] MEDS ORDERED: fentaNYL (PF) 50 MCG/ML 2 ML AMP ONE (13:14)
[2018-02-02] MEDS ORDERED: SODIUM CHLORIDE 0.9% 1,000 ML IV ONE (13:32)
[2018-02-02] MEDS ORDERED: HYDROcodone/APAP 5-325MG 1 EACH TAB PO PRN (14:30)
[2018-02-02] MEDS ORDERED: ACETAMINOPHEN TAB 325 MG TAB PO PRN (14:30)
[2018-02-02] MEDS ORDERED: ACETAMINOPHEN IV (For NPO) 1,000 MG in EMPTY BAG 1 BAG IVPB ONE (15:00)
[2018-02-02] MEDS: PANTOPRAZOLE 40 MG TABLET PO SCH (17:36)
[2018-02-02] MEDS: traMADol 50 MG TAB PO PRN (18:03)
--- NOTE | 2018-02-02 20:59 | LTR ---
DATE OF SERVICE: 02/02/2018 Dear Sallie: Anel Coyle underwent diagnostic EP study for evaluation for syncope. She had not shown any improvement with Florinef but after starting nadolol, there was an improvement in her symptoms. However, the diagnostic EP study did not show any inducible SVT or VT. Therefore at this time we will simply continue low-dose nadolol as well as Florinef. Thank you for entrusting me in the care of your patient. Warm regards, Sincerely, BRAD / MARCELINAN: [id number] /
--- NOTE | 2018-02-02 20:59 | CE ---
CARDIAC ELECTROPHYSIOLOGY REPORT Anel Coyle is a 37-year-old female with recurrent palpitations with presyncope and syncope despite Florinef. There was an improvement with nadolol and therefore an EP study was recommended. Patient was brought to the EP lab in a fasting state. Written informed consent was obtained prior to the procedure. The right groin was prepped and draped as per protocol. Three venous sheaths were placed in the right femoral vein. Via these, diagnostic catheters were placed in the high right atrium, His bundle and right ventricle and later in the coronary sinus. Baseline measurements were as follows and were normal: Sinus cycle length 880 milliseconds. TN interval 163 milliseconds, QRS 108 milliseconds. QT 444 milliseconds. AH interval 80 milliseconds, HV interval 41 milliseconds. Sinus node recovery times of 600, 500 and 400 milliseconds were 1106, 1396 and 1068 milliseconds. Corresponding corrected sinus node recovery times within normal limits. AV node Wenckebach block 400 milliseconds. VA Wenckebach block greater than 600 milliseconds. No SVT was induced in the baseline state. Isuprel was started wide open and then at 2 mics subsequently increased to 4 mics. AV node Wenckebach block from the high right atrium 230 milliseconds, VA Wenckebach block improved to 330 milliseconds. AV node ERP 450/210 milliseconds and 450/230/220 milliseconds. No SVT was induced. No evidence of slow pathway, no delta waves noted. AV node Wenckebach block from the coronary sinus 230 milliseconds, ventricular extra stimulation after single extrastimuli was performed. Ventricular ERP is 500/220 milliseconds. AV node ERP 450/200 milliseconds. No SVT was induced. All catheters were then removed at the end of the procedure and the patient was transferred to telemetry. IMPRESSION: Normal diagnostic EP study with normal sinus node function. Normal AV node function. No evidence of slow pathway conduction. No evidence for accessory pathway conduction and no inducible arrhythmias. PLAN: Continue low-dose nadolol as well as Florinef. MMODL / IJN: [id number] /
[2018-02-02] MEDS ORDERED: traZODone HCL 50 MG TAB PO SCH (21:00)
[2018-02-02] MEDS ORDERED: metFORMIN 500 MG TAB PO SCH (21:00)
[2018-02-03] MEDS ORDERED: LEVOTHYROXINE 25 MCG TAB PO SCH (06:30)
[2018-02-03] MEDS ORDERED: metFORMIN 500 MG TAB PO SCH (07:30)
[2018-02-03] MEDS: PANTOPRAZOLE 40 MG TABLET PO SCH (07:53)
[2018-02-03 07:59] VITALS: BP 87/54; PULSE 64; RESP 18; TEMP 98.1
--- NOTE | 2018-02-03 07:59 | P.DS ---
Providers Attending physician: Tyree Grimes Primary care physician: [facility] Course: Patient is doing well. No chest discomfort dizziness lightheadedness no palpitations Her groin is healing well there is no hematoma no swelling minimal tenderness Heart sounds are normal Breath sounds are clear Extremities warm no edema patient has been ambulating in the hallways Impression Recurrent presyncope and syncope with palpitations Diagnostic EP study did not show any inducible arrhythmias Likely hypotensive episodes. Chest continue Florinef continue nadolol Follow-up with office in about 2 weeks Patient Condition at Discharge: Stable Plan - Discharge Summary Discharge Rx Participant: No New Discharge Prescriptions: Continue Famotidine [Pepcid] 40 mg PO HS Levothyroxine Sodium [Tirosint] 25 mcg PO MOTUWETHFR traZODone HCL 150 mg PO DAILY traMADol HCL [Ultram] 100 mg PO QID PRN PRN Reason: Pain metFORMIN HCL [Glucophage] 1,000 mg PO DAILY Omeprazole 40 mg PO BID Escitalopram [Lexapro] 10 mg PO DAILY metFORMIN HCL [Glucophage] 500 mg PO HS Cetirizine HCl 10 mg PO DAILY Levothyroxine Sodium [Tirosint] 50 mcg PO SUSA Ergocalciferol [Vitamin D2 (DRISDOL)] 50,000 unit PO Q7D Cyanocobalamin (Vitamin B-12) [Vitamin B12] 1,000 mg PO DAILY Nadolol 40 mg PO DAILY Fludrocortisone [Florinef] 0.1 dose PO DAILY Discharge Medication List Famotidine [Pepcid] 40 mg PO HS 09/07/16 [History] Levothyroxine Sodium [Tirosint] 25 mcg PO MOTUWETHFR 09/06/17 [History] traZODone HCL 150 mg PO DAILY 09/06/17 [History] metFORMIN HCL [Glucophage] 1,000 mg PO DAILY 09/19/17 [History] traMADol HCL [Ultram] 100 mg PO QID PRN 09/19/17 [History] Omeprazole 40 mg PO BID 10/10/17 [History] Cetirizine HCl 10 mg PO DAILY 01/27/18 [History] Cyanocobalamin (Vitamin B-12) [Vitamin B12] 1,000 mg PO DAILY 01/27/18 [History] Ergocalciferol [Vitamin D2 (DRISDOL)] 50,000 unit PO Q7D 01/27/18 [History] Escitalopram [Lexapro] 10 mg PO DAILY 01/27/18 [History] Levothyroxine Sodium [Tirosint] 50 mcg PO SUSA 01/27/18 [History] Nadolol 40 mg PO DAILY 01/27/18 [History] metFORMIN HCL [Glucophage] 500 mg PO HS 01/27/18 [History] Fludrocortisone [Florinef] 0.1 dose PO DAILY 02/02/18 [History] Follow up Appointment(s)/Referral(s): Tyree Grimes MD [STAFF PHYSICIAN] - 1 Week (Follow-up with Dr. Valdez/[place] in 2-3 weeks post EPS Follow-up with Dr. Valdez again in 4-6 months) Activity/Diet/Wound Care/Special Instructions: Post EP study - Ablation instructions 1. Keep access sites dry for 2 days. 2. No heavy lifting or straining for 2 days. 3. Avoid bending the hips repeatedly for 2 days. 4. You may go up and down stairs slowly Call if the following is noted 1. Bleeding, increasing swelling or pain at the access sites. 2. Increasing chest discomfort, especially upon taking a deep breath. 3. Increasing shortness of breath, at rest or with exertion. 4. Undue cough / phlegm 5. Difficulty or pain while swallowing. 6. Pain or change in color in the extremities. 7. Fever, chills, rigors. 8. Increasing headache or neurologic symptoms. 9. Dizziness, fainting, palpitations Discharge Disposition: HOME SELF-CARE
[2018-02-03] MEDS: traMADol 50 MG TAB PO PRN (08:17)
[2018-02-03] MEDS ORDERED: FLUDROCORTISONE 0.1 MG TAB PO SCH (09:00)
[2018-02-03] MEDS ORDERED: NADOLOL 20 MG TAB PO SCH (09:00)
[2018-02-04] MEDS ORDERED: LEVOTHYROXINE 50 MCG TAB PO SCH (06:30)
== END 2018-02-03 10:25 | disposition home or self-care (01) ==
LOC: CATHEP 10:28 → 3OBS 14:33 → CATHEP 02-03 10:25
PROVIDERS: ATTEND Internal Medicine Clinical Cardiac Electrophysiology
DX: R55 Syncope and collapse (principal); R00.2 Palpitations; I49.5 Sick sinus syndrome; Z79.84 Long term (current) use of oral hypoglycemic drugs; Z79.890 Hormone replacement therapy; Z79.899 Other long term (current) drug therapy; Z88.0 Allergy status to penicillin; Z88.1 Allergy status to other antibiotic agents; Z91.040 Latex allergy status
CPT/HCPCS: 93623; 93620; 81025; C1894; C1769 ×2; C1730 ×2; J2250; J1200; J3010

== ENCOUNTER → 2018-02-28 | Outpatient (CLI) | payer OTHER ==
[2018-02-28 17:55] LABS: Blood Urea Nitrogen 9 mg/dL (7-17)
--- NOTE | 2018-02-28 22:26 | MR ---
EXAMINATION TYPE: MR brain wo/w con DATE OF EXAM: 02/28/2018 COMPARISON: Prior MRI brain February 08, 2017. HISTORY: Syncope and collapse TECHNIQUE: Multiplanar, multisequence images of the brain and brainstem is performed without and with IV contras t, utilizing 13 mL intravenous Gadavist . FINDINGS: Diffusion weighted images demonstrate no evidence of a recent infarct or other diffusion ab normality. There is no worrisome extra-axial fluid collection. The ventricular system and cisternal spaces are normal in size and appearance. The brain volume is age appropriate. There is occasional focus of T2 hyperintensity seen throughout the white matter, for reference 2 focal lesions are redemo nstrated on axial image 21 including reference 4 mm right posterior frontal yen radiata lesion fel t stable. No new lesions are clearly present. Midline structures redemonstrate empty sella appearance. The craniocervical junction appears within normal limits. Post contrast images demonstrate no abnormal enhancement. The dural venous sinuses ap pear patent. The visualized sinuses are clear and the globes are intact. IMPRESSION: Minimal nonspecific white matter changes and empty sella redemonstrated. No significant c hange from prior MRI.
--- NOTE | 2018-02-28 22:31 | MR ---
EXAMINATION TYPE: MR lumbar spine wo con DATE OF EXAM: 02/28/2018 COMPARISON: Prior MRI lumbar spine September 01, 2016. HISTORY: Lumbago per order. Back pain for 2 years into bilateral lower extremities per patient. TECHNIQUE: Multiplanar, multisequence imaging of the lumbar spine is performed without IV contrast. FINDINGS: Sagittal images of the lumbar spine show vertebral body heights and alignment to remain sat isfactory. There is redemonstration of disc desiccation at T11-T12 as well as L2-L3 through the L4-L5 levels. There is redemonstration of mild to moderate multilevel disc space narrowing with relative sparing of the L5-S1 level. Prominent posterior disc herniation L3-L4 level is redemonstrated on sagi ttal images. The conus medullaris remains normal in position and signal ending inferior L1 level. The re is mild multilevel anterior spurring redemonstrated. Some heterogeneous endplate changes in the lo wer lumbar spine are again seen. Axial images show the T12-L1 and L1-L2 levels to remain within normal limits. Axial images at the L2-L3 level demonstrates mild broad-based posterior disc protrusion minimally eff acing anterior thecal sac, bilateral neural foramina are patent. No significant change from prior alena dy is seen. Axial images at the L3-L4 level show mild broad disc bulge with more prominent focal central disc pro trusion component axial image 14 redemonstrated effacing the anterior thecal sac, in addition there i s superior extrusion of the mid L3 vertebra seen sagittal image 7 and axial image 16 redemonstrated e ffacing the anterior thecal sac. Mild facet degenerative changes bilaterally are present. Bilateral n eural foramina are patent. No significant change from prior. Axial images at the L4-L5 level demonstrates mild facet degenerative changes bilaterally. There is mi [id number] broad disc bulge effacing the anterior thecal sac with mild bilateral anterior inferio r neural foraminal narrowing redemonstrated. No significant change from prior. Axial images at the L5-S1 level demonstrates mild facet degenerative changes bilaterally. There is ce ntral disc protrusion seen. Spinal canal is preserved. Bilateral neural foramina are patent. No signi ficant change from prior. No suspicious incidental retroperitoneal findings are identified. IMPRESSION: Stable multilevel degenerative changes in lumbar spine as detailed above, most prominent disc herniation is redemonstrated L3-L4 level without significant interval change.
== END ==
LOC: RADMRIMAIN 17:20
PROVIDERS: ATTEND Psychiatry & Neurology Neurology
DX: M48.061 Spinal stenosis, lumbar region without neurogenic claudication (principal); M51.27 Other intervertebral disc displacement, lumbosacral region; M47.817 Spondylosis without myelopathy or radiculopathy, lumbosacral region; R90.89 Other abnormal findings on diagnostic imaging of central nervous system
CPT/HCPCS: 82565; 84520; 70553; 72148; 36415; A9581

== ENCOUNTER → 2020-10-15 | Outpatient (CLI) | payer MEDICARE, OTHER ==
--- NOTE | 2020-10-15 16:47 | CT ---
EXAMINATION TYPE: CT brain wo con DATE OF EXAM: 10/15/2020 COMPARISON: MRI brain March 10, 2018 HISTORY: headaches CT DLP: 1126.5 mGycm. Automated Exposure Control for Dose Reduction was Utilized. TECHNIQUE: CT scan of the head is performed without contrast. FINDINGS: New right frontal lobo hole with CLIENT EXPERIENCE ADMINISTRATOR shunt catheter terminating near the level of foramen o f [place]. Ventricular size stable from MRI. There is no acute intracranial hemorrhage or midline shif t identified. The sulci remain within normal limits in size. The globes are intact and the visualiz ed sinuses remain clear. Empty sella morphology remains present. Cerebellar tonsillar position is sta ble. IMPRESSION: New CLIENT EXPERIENCE ADMINISTRATOR shunt catheter. Ventricular size stable without hydrocephalus.
== END | disposition home or self-care (01) ==
LOC: RADCTMAIN 16:24
PROVIDERS: ATTEND Psychiatry & Neurology Neurology
DX: Z98.2 Presence of cerebrospinal fluid drainage device (principal)
CPT/HCPCS: 70450

== ENCOUNTER → 2021-12-25 | Outpatient (CLI) | payer MEDICARE ==
[2021-12-25 18:27] LABS: HCT 42.3 % (37.2-46.3); HGB 13.5 g/dL (12.0-15.0); MCH 29.1 pg (27.0-32.0); MCHC 31.9 g/dL (32.0-37.0); MCV 91.2 fL (80.0-97.0); Mean Platelet Volume 11.6 fL (9.5-12.2); NRBC Per 100 WBC 0 /100 WBCS (0.0-0.0); Platelet Count 286 X 10*3/uL (140-440); RBC 4.64 X 10*6/uL (4.10-5.20); RDW 12.4 % (11.5-14.5); WBC 8.32 X 10*3/uL (4.50-10.00)
[2021-12-25 18:36] LABS: African American GFR (CKD) 106.1 (60.0-200.0); Anion Gap 9.7 mmol/L (10.00-18.00); Blood Urea Nitrogen 13.3 mg/dL (9.0-27.0); Carbon Dioxide 24.3 mmol/L (20.0-27.5); Non-African American GFR(CKD) 91.6 (60.0-200.0); Potassium 4.5 mmol/L (3.5-5.5)
== END | disposition home or self-care (01) ==
LOC: LABPAT 12:39
PROVIDERS: ATTEND Internal Medicine Interventional Cardiology
DX: Z01.812 Encounter for preprocedural laboratory examination (principal); R94.39 Abnormal result of other cardiovascular function study
CPT/HCPCS: 80051; 82565; 84520; 85027

== ENCOUNTER 2021-12-29 10:40 | Day surgery (SDC) | payer MEDICARE ==
[2021-12-25 09:15] VITALS: BMI 35.8
[~2021-12-29 10:40] MED LIST changes: +ALPRAZolam 0.25 MG TAB PO PRN; +ALPRAZolam 0.5 MG TAB PO PRN; +ASPIRIN 325 MG TAB PO STA; +ATORVASTATIN 80 MG TAB PO STA; +HEPARIN SODIUM,PORCINE 10,000 UNIT in SODIUM CHLORIDE 0.9% 1,000 ML IRRIGATION PRN; +HEPARIN SODIUM,PORCINE 2,500 UNIT in SODIUM CHLORIDE 0.9% 250 ML IRRIGATION PRN; -LACTATED RINGERS 1,000 ML IV SCH; +NITROGLYCERIN SL TABS 0.4 MG TAB SUBLINGUAL PRN; -SODIUM CHLORIDE 0.9% 1,000 ML IV SCH; +SODIUM CHLORIDE 0.9% 1,000 ML in EMPTY BAG 1 BAG IV SCH
[2021-12-29 11:36] LABS: Glucose,Whole Blood 86 mg/dL (70-110)
[2021-12-29 11:39] VITALS: RESP 18; TEMP 98.7
[2021-12-29] MEDS ORDERED: VERAPAMIL 2.5 MG/ML 2 ML AMP ONE (11:44)
[2021-12-29] MEDS ORDERED: HEPARIN SODIUM 1,000 UN/ML (10ML VL) ONE (12:14)
[2021-12-29] MEDS ORDERED: MIDAZOLAM 2 MG/2 ML VIAL IV ONE (12:30)
[2021-12-29] MEDS ORDERED: LIDOCAINE 1% INJ 10MG/ML (5 ML VIAL-PF) SQ ONE (12:33)
[2021-12-29] MEDS ORDERED: VERAPAMIL SYRINGE (5 MG/10 ML) INTRAARTER ONE (12:34)
[2021-12-29] MEDS ORDERED: HEPARIN SODIUM 1,000 UN/ML (10ML VL) IV ONE (12:37)
[2021-12-29] MEDS ORDERED: IOPAMIDOL-370 125ML BTL INJ ONE (12:43)
[2021-12-29] MEDS ORDERED: RX INFO: IV CONTRAST WAS GIVEN 1 EACH MISC MISCELLANE PRN (12:45)
[2021-12-29] MEDS ORDERED: SODIUM CHLORIDE 0.9% 1,000 ML IV SCH (12:45)
--- NOTE | 2021-12-29 12:49 | P.PCN ---
Date of Procedure: 12/29/21 Operative Findings: CARDIAC CATHETERIZATION PERFORMING PHYSICIAN: Ishan Palma MD, RPVI PROCEDURE PERFORMED: 1. Selective right and left coronary angiogram 2. Left heart catheterization INDICATION: This is a 41-year-old female patient with diabetes and significant family history of CAD was experiencing chest discomfort which she underwent myocardial perfusion imaging stress test and that revealed an anterior ischemia. In the light of that a heart catheterization was advised COMPLICATION: None APPROACH: Right radial artery LEVEL OF SEDATION: Moderate with a sedation length of 8 minutes PROCEDURE DESCRIPTION: After obtaining an informed consent, the patient was brought to cardiac outside laborer. Local anesthesia was performed using lidocaine subcutaneously. The right radial artery was cannulated using Seldinger technique, the guidewire passed easily, following that we advanced a 5-Maldivian sheath dilator assembly, the wire and dilator were removed and sheath was flushed. Following that, 2 mg of verapamil along with 5000 unit heparin were given. Selective right and left coronary angiogram using a 6-Maldivian JR4 and JL 3.5 catheters. Following that we did left heart catheterization using 6-Maldivian pigtail catheter. The procedure was completed there was no complication. SELECTIVE CORONARY ANGIOGRAM: The right coronary artery: Is a large caliber vessel and a dominant vessel. The RCA is angiographically normal. Distally bifurcates into PDA and PLV branches. Both appeared to be angiographically normal Left main: Is angiographically normal. Bifurcates into LCx and LAD The left circumflex: Large caliber vessel nondominant vessel. Its angiographically normal. It gives rises into a large OM branch which appeared to be angiographically normal The left anterior descending artery: Is angiographically normal. Gives rises into 2 large diagonal branches and they are angiographically normal as well. HEMODYNAMICS: The LVEDP was 10 mmHg was no significant gradient across aortic valve CONCLUSION: 1. Normal coronary angiogram 2. Normal left-sided filling pressure POSTPROCEDURE MANAGEMENT: Medical treatment and follow-up with the patient
[2021-12-29 14:02] VITALS: PULSE 72
[2021-12-29 16:01] VITALS: BP 103/58
== END 2021-12-29 17:02 | disposition home or self-care (01) ==
LOC: CATHCVL 10:40
PROVIDERS: ATTEND Internal Medicine Interventional Cardiology
DX: I20.0 Unstable angina (principal); R94.39 Abnormal result of other cardiovascular function study; Z82.49 Family history of ischemic heart disease and other diseases of the circulatory system; Z72.0 Tobacco use; Z79.84 Long term (current) use of oral hypoglycemic drugs; Z79.899 Other long term (current) drug therapy; Z88.0 Allergy status to penicillin; Z88.1 Allergy status to other antibiotic agents; Z91.040 Latex allergy status
CPT/HCPCS: 93458; 84703; 87635; C1769; C1894; J2250; J2001; J1644; Q9967

== ENCOUNTER → 2022-11-11 | Outpatient (CLI) | payer MEDICARE, OTHER ==
--- NOTE | 2022-11-11 23:37 | EEG ---
ELECTROENCEPHALOGRAM REPORT CLINICAL HISTORY: This is a 42-year-old woman with history of idiopathic intracranial hypertension, status post shunt on the right anterior region, who is having recurrent syncopal episode. The video EEG is obtained to evaluate for seizure and epileptiform activity. RELEVANT MEDICATIONS: The patient is on trazodone, tramadol, and is not on any antiepileptic drugs. EEG TYPE: A routine 21-channel EEG is performed with video using the 10/20 electrode placement system. DESCRIPTION: Wakefulness is obtained. During awake state, the posterior-dominant rhythm consists of [id number] voltage of 9-10 hertz activity that is well modulated, well sustained. There is no physiological stage 2 sleep architecture. There is no focal slowing. Interictal and ictal is, there is moderate amount of sharp/spike with slow waves over the right central/parietal region. No seizures noted during the study. ACTIVATION PROCEDURE: Photic stimulation did not evoke a posterior driving response. There is no abnormality during the photic stimulation. Hyperventilation is not performed. CLINICAL INTERPRETATION: This is an abnormal routine EEG. There are epileptiform discharges over the right central/parietal region, which increases risk for focal seizures as well as status. Otherwise, there is no focal slowing, epileptiform discharge, or seizure on the EEG. I recommend the patient to obtain a sleep-deprived EEG or a prolonged EEG for further characterization. I personally called the patient's Neurology office as well as I called the patient and updated them of the result. Clinical correlation is recommended. BRAD / MARTINA: [id number] / MTDD
== END ==
LOC: NEUROMAIN 08:04
PROVIDERS: ATTEND Psychiatry & Neurology Pain Medicine
DX: R41.82 Altered mental status, unspecified (principal); R90.82 White matter disease, unspecified; R55 Syncope and collapse; Z01.818 Encounter for other preprocedural examination; Z91.040 Latex allergy status; Z88.0 Allergy status to penicillin; Z88.1 Allergy status to other antibiotic agents; Z87.891 Personal history of nicotine dependence
CPT/HCPCS: 95819

== ENCOUNTER → 2023-07-12 | Outpatient (CLI) | payer MEDICARE, OTHER ==
--- NOTE | 2023-07-12 13:14 | MR ---
EXAMINATION TYPE: MR brain wo con DATE OF EXAM: 07/12/2023 8:44 AM CLINICAL INDICATION:Female, 43 years old with history of G93.2 BENIGN INTRACRANIAL HYPERTENSION; PHH, Headaches, MS f/u, hx of shunt COMPARISON: 02/28/2018. TECHNIQUE: Multi planar, multi sequence imaging was performed through the brain including: T1, T2, In version recovery, Diffusion weighted imaging, and gradient echo imaging. No gadolinium was given. FINDINGS: Evaluation of the brain is slightly limited by ventricular ostomy tubing/reservoir. Right f rontal lateral approach ventriculostomy tubing terminating near the tip near the left aspect of the s eptum pellucidum. No evidence for abnormal dilation of the ventricular system. Minimal white matter c hanges scattered throughout the brain with high FLAIR signal. The sella is similar appearance with fl attened appearance of the pituitary gland. The villarreal-white junctions, ventricular system, basal cister ns appear unremarkable. Midline structures show no abnormality. Diffusion-weighted imaging shows no e vidence of restricted diffusion. The susceptibility weighted images do not reveal any evidence for mi croze cutter-hemorrhage. The bone marrow signal is within normal limits. Paranasal sinuses and mastoid air cells: No significant paranasal sinus disease. Visualized orbits: Orbital contents are intact. IMPRESSION: 1. Ventriculostomy tubing with stable appearance of the ventricular system. No evidence for acute int racranial process. 2. No evidence of intracranial mass or acute/subacute infarct. 3. Stable minimal white matter change. 4. Stable appearance of the pituitary fossa.
== END | disposition home or self-care (01) ==
LOC: RADMRIMAIN 08:10
PROVIDERS: ATTEND Surgery
DX: G93.89 Other specified disorders of brain (principal); G93.2 Benign intracranial hypertension; H54.7 Unspecified visual loss; G35 Multiple sclerosis; E87.8 Other disorders of electrolyte and fluid balance, not elsewhere classified; M54.2 Cervicalgia; R56.9 Unspecified convulsions; R51.9 Headache, unspecified; Z98.2 Presence of cerebrospinal fluid drainage device
CPT/HCPCS: 70551

== ENCOUNTER → 2024-06-14 | Outpatient (CLI) | payer MEDICARE, OTHER ==
--- NOTE | 2024-06-15 09:00 | MR ---
EXAMINATION TYPE: MR cervical spine wo con DATE OF EXAM: 06/14/2024 4:01 PM COMPARISON: None. CLINICAL INDICATION: Female, 44 years old with history of M47.812 SPONDYLOSIS W/O MYELOPATH G95.9 R07 .89, Headaches, neck pain, tingling in arms, fingers and legs for several years. low back pain. TECHNIQUE: Multiplanar multiecho imaging on a 3.0 Vaishali magnet is performed through the cervical spin e. IV Contrast: mL (None, if empty) FINDINGS: The craniovertebral junction is normal. Vertebral body alignment is normal. C7-T1: No focal disc herniation or significant disc bulge is evident. No spinal canal stenosis or n eural foraminal stenosis is present. C6-7: Minimal central disc bulge has mild anterior thecal sac compression. No cord contact or spinal canal stenosis. No neural foraminal stenosis. C5-6: Minimal central disc bulge has minimal anterior thecal sac compression. No cord contact or spin al canal stenosis. No neural foraminal stenosis. C4-5: No focal disc herniation or significant disc bulge is evident. No spinal canal stenosis or todd ral foraminal stenosis is present. C3-4: No focal disc herniation or significant disc bulge is evident. No spinal canal stenosis or todd ral foraminal stenosis is present. C2-3: No focal disc herniation or significant disc bulge is evident. No spinal canal stenosis or todd ral foraminal stenosis is present. IMPRESSION: 1. Minimal central disc bulging present C5-6 C6-7 with minimal to mild anterior thecal sac compressio n. [facility], , 06/15/2024 8:57 AM
== END | disposition home or self-care (01) ==
LOC: RADMRIMAIN 14:46
PROVIDERS: ATTEND Neurological Surgery
DX: M47.812 Spondylosis without myelopathy or radiculopathy, cervical region (principal); M50.322 Other cervical disc degeneration at C5-C6 level; R07.89 Other chest pain
CPT/HCPCS: 72141

== ENCOUNTER → 2024-08-07 | Outpatient (CLI) | payer MEDICARE, OTHER ==
[2024-08-07 15:40] LABS: % Iron Saturation 18.99 (12.00-45.00)
[2024-08-07 15:46] LABS: Basophils # (A) 0.04 X 10*3/uL (0.00-0.10); Basophils % (A) 0.5 %; Eosinophils # (A) 0.25 X 10*3/uL (0.04-0.35); Eosinophils % (A) 3.2 %; HCT 43.9 % (37.2-46.3); HGB 13.8 g/dL (12.0-15.0); Lymphocytes # (A) 2.12 X 10*3/uL (0.90-5.00); MCH 29.6 pg (27.0-32.0); MCHC 31.4 g/dL (32.0-37.0); Monocytes # (A) 0.74 X 10*3/uL (0.20-1.00); Monocytes % (A) 9.4 %; NRBC Per 100 WBC 0 X 10*3/uL (0.00-0.01); Neutrophils # (A) 4.68 X 10*3/uL (1.80-7.70); Neutrophils % (A) 59.6 %; Platelet Count 338 X 10*3/uL (140-440); RBC 4.67 X 10*6/uL (4.10-5.20); WBC 7.85 X 10*3/uL (4.50-10.00)
== END | disposition home or self-care (01) ==
LOC: LABWHC1 08:46
PROVIDERS: ATTEND Psychiatry & Neurology Neurology
DX: D64.9 Anemia, unspecified (principal); R53.83 Other fatigue
CPT/HCPCS: 36415; 82746; 83540; 83550; 84466; 85025

== ENCOUNTER → 2024-12-04 | Outpatient (CLI) | payer MEDICARE, OTHER ==
--- NOTE | 2024-12-04 16:28 | US ---
EXAMINATION TYPE: US kidneys/renal and bladder DATE OF EXAM: 12/04/2024 COMPARISON: US ABD 04/03/2022 CLINICAL INDICATION: Female, 44 years old with history of R79.9 ELEVATED BUN R79.89 ELEVATED SERUM CR EATININ; Hx POTS, patient denies any signs, symptoms, or relevant history TECHNIQUE: Grayscale imaging of the bilateral kidneys and urinary bladder: FINDINGS: EXAM MEASUREMENTS: Right Kidney: 10.0 x 4.6 x 4.9 cm Left Kidney: 10.1 x 4.6 x 5.2 cm Post Void Residual Volume: NA mL Right Kidney: wnl, no evidence for hydronephrosis, mass or renal calculus. Left Kidney: wnl, no evidence for hydronephrosis, mass or renal calculus. Bladder: Not fully distended, WNL as visualized Bilateral Jets seen: Not able to assess Normal Post Void Residual: NA There is no evidence for hydronephrosis at this point in time. No nephrolithiasis is seen. No frandy s are identified. Cortical medullary differentiation is maintained bilaterally. The urinary bladder i s underdistended but anechoic. IMPRESSION: No hydronephrosis or nephrolithiasis. [facility], , 12/04/2024 4:26 PM
== END | disposition home or self-care (01) ==
LOC: RADUSWWP 16:06
PROVIDERS: ATTEND Family Medicine
DX: R79.9 Abnormal finding of blood chemistry, unspecified (principal); R79.89 Other specified abnormal findings of blood chemistry
CPT/HCPCS: 76770